=== PATIENT | male | born 1965 | race Caucasian/White ===

== ENCOUNTER → 2017-08-11 | Outpatient (CLI) | payer OTHER | LOC: M SLEEP 19:49 | DX: G47.61 Periodic limb movement disorder (principal); R06.83 Snoring | CPT/HCPCS: 95810 ==

== ENCOUNTER 2018-04-14 16:52 | Emergency (ER) | payer OTHER ==
[2018-04-14] MEDS: ADACEL/BOOSTRIX VACCINE (DIPHTH/PERTUSS/ACELL/TETANUS)0.5ML SYR (90715) IM (17:20)
[2018-04-14] MEDS: LIDOCAINE W/EPINEPHRINE 1% 20ML VIAL SC (17:29)
[2018-04-14] MEDS: ALPRAZolam 0.5 MG TAB PO (17:29)
== END 2018-04-14 18:20 | disposition home or self-care (01) ==
LOC: M ED 16:52
DX: S81.011A Laceration without foreign body, right knee, initial encounter (principal); W27.0XXA Contact with workbench tool, initial encounter; Y92.018 Other place in single-family (private) house as the place of occurrence of the external cause; Z88.0 Allergy status to penicillin; F17.210 Nicotine dependence, cigarettes, uncomplicated
CPT/HCPCS: 90715

== ENCOUNTER → 2018-08-29 | Outpatient (REF) | payer OTHER ==
[2018-08-29 12:54] LABS: INFLUENZA A AMPLIFICATION NEGATIVE (NEGATIVE); INFLUENZA B AMPLIFICATION NEGATIVE (NEGATIVE)
== END ==
LOC: M LAB REF 11:57
PROVIDERS: ATTEND Physician Assistant
DX: J11.1 Influenza due to unidentified influenza virus with other respiratory manifestations (principal)

== ENCOUNTER → 2019-09-07 | Outpatient (CLI) | payer MEDICAID, OTHER, SELFPAY ==
[2019-09-09 12:45] LABS: LUTEINIZING HORMONE 2.9 mIU/mL (1.5-9.3); PROLACTIN 2.2 NG/ML (2.1-17.7)
== END ==
LOC: M LAB 11:32
PROVIDERS: ATTEND Nurse Practitioner Family
DX: E29.1 Testicular hypofunction (principal)

== ENCOUNTER → 2022-08-07 | Outpatient (CLI) | payer OTHER ==
[2022-08-07 10:08] LABS: FOLLICLE STIMULATING HORMONE 11.5 mIU/ML (1.4-18.1); FREE T4 0.89 NG/DL (0.89-1.76); LUTEINIZING HORMONE 7.4 mIU/ML (1.5-9.3)
[2022-08-07 10:09] LABS: PROLACTIN 5.14 NG/ML (2.1-17.7); THYROID STIMULATING HORMONE 3.938 uIU/ML (0.55-4.78)
== END ==
LOC: M LAB 08:31
PROVIDERS: ATTEND Nurse Practitioner Family
DX: E29.1 Testicular hypofunction (principal)

== ENCOUNTER → 2022-10-08 | Outpatient (CLI) | payer OTHER | LOC: M LAB 08:50 | PROVIDERS: ATTEND Family Medicine | DX: G47.10 Hypersomnia, unspecified (principal); E53.8 Deficiency of other specified B group vitamins ==

== ENCOUNTER → 2023-04-21 | Outpatient (CLI) | payer OTHER | LOC: M RAD 17:08 | PROVIDERS: ATTEND Family Medicine | DX: M19.031 Primary osteoarthritis, right wrist (principal) ==

== ENCOUNTER 2023-05-22 20:00 | Outpatient (CLI) | payer OTHER | END 2023-05-23 08:00 | LOC: M SLEEP 20:00 | PROVIDERS: ATTEND Nurse Practitioner Adult Health | DX: G47.61 Periodic limb movement disorder (principal) ==

== ENCOUNTER → 2023-07-15 | Outpatient (REF) | payer OTHER | LOC: M LAB REF 13:29 | PROVIDERS: ATTEND Physician Assistant | DX: B34.9 Viral infection, unspecified (principal) ==

== ENCOUNTER → 2023-11-23 | Outpatient (CLI) | payer OTHER, SELFPAY | LOC: M RAD 17:38 | PROVIDERS: ATTEND Physician Assistant | DX: M25.522 Pain in left elbow (principal) ==

== ENCOUNTER → 2024-07-26 | Outpatient (REF) | payer OTHER, SELFPAY ==
[2024-07-29 12:58] LABS: MUMPS VIRUS IgG ANTIBODY 16.2 AU/mL (>10.99)
== END ==
LOC: M LABWUC 16:10
PROVIDERS: ATTEND Family Medicine
DX: Z02.1 Encounter for pre-employment examination (principal)

== ENCOUNTER 2025-03-24 08:59 | Day surgery (SDC) | payer OTHER ==
[~2025-03-24] VITALS: Ht 177.8 cm; Wt 72.6 kg
[~2025-03-24 08:59] MED LIST: CLAR10CA3 PO; MULTTAB61 PO; PANT40TA29 PO
[2025-03-24] MEDS ORDERED: LIDOCAINE VISCOUS 2% SOLN 15 ML UDC As Ordered ONE (11:20)
[2025-03-24 12:17] VITALS: BP 145/68; O2SAT 98
== END 2025-03-24 12:18 | disposition home or self-care (01) ==
LOC: M OPP 08:59
PROVIDERS: ATTEND Surgery
DX: K44.9 Diaphragmatic hernia without obstruction or gangrene (principal)

== ENCOUNTER → 2025-06-02 | Outpatient (CLI) | payer OTHER ==
[2025-06-02 17:44] LABS: APPEARANCE, URINE CLEAR (CLEAR); BACTERIA, URINE AUTO NEGATIVE (NEGATIVE); BILIRUBIN, URINE AUTO NEGATIVE (NEGATIVE); BLOOD, URINE BLOOD NEGATIVE (NEGATIVE); GLUCOSE, URINE (UA) AUTO NEGATIVE (NEGATIVE); KETONE, URINE AUTO NEGATIVE (NEGATIVE); LEUKOCYTE ESTERASE, URINE AUTO NEGATIVE (NEGATIVE); NITRITE, URINE AUTO NEGATIVE (NEGATIVE); PROTEIN, URINE AUTO NEGATIVE (NEGATIVE); RBC, URINE AUTO 0 /HPF (0-3); SPECIFIC GRAVITY URINE AUTO 1.006 (1.002-1.035); SQUAMOUS EPITHELIAL CELL UR AU 0 /HPF (0-6); UROBILINOGEN, URINE AUTO 0.2 mg/dL (0.0-2.0); WBC, URINE AUTO 0 /HPF (0-3)
[2025-06-02 18:07] LABS: BASO # 0.1 10^3/uL (0.0-0.2); BASO % 0.7 % (0.0-1.0); EOS # 0.2 10^3/uL (0.0-0.5); EOS % 2.6 % (0.0-3.0); LYMPH # 2.1 10^3/uL (1.5-5.0); LYMPH % 29.7 % (24.0-44.0); MONO # 0.7 10^3/uL (0.0-0.8); MONO % 9.2 % (2.0-8.0); NEUTROPHILS # 4.1 10^3/uL (1.5-8.5); NEUTROPHILS % 57.5 % (36.0-66.0); PLATELET COUNT, AUTOMATED 408 10^3/uL (150-450)
[2025-06-02 18:13] LABS: ALT/SGPT 52 U/L (7.0-40); AST/SGOT 46 U/L (<34); CALCIUM LEVEL 10.3 MG/DL (8.3-10.6); CARBON DIOXIDE LEVEL 26 MMOL/L (20-31); CHLORIDE LEVEL 106 MMOL/L (98-107); CREATININE FOR GFR 0.80 MG/DL (0.70-1.30); GLOMERULAR FILTRATION RATE > 90.0 (>49); POTASSIUM SERUM 4.0 MMOL/L (3.5-5.1); SODIUM LEVEL 144 MMOL/L (136-145)
== END ==
LOC: M WUC 13:28
PROVIDERS: ATTEND Family Medicine
DX: K44.9 Diaphragmatic hernia without obstruction or gangrene (principal); R53.83 Other fatigue

== ENCOUNTER 2025-06-09 06:04 | Day surgery (SDC) | payer OTHER ==
[~2025-06-09] VITALS: Ht 177.8 cm; Wt 78.0 kg
[2025-06-09] MEDS ORDERED: SUGAMMADEX SODIUM 500 MG/5 ML VIAL As Ordered ONE (06:51)
[2025-06-09] MEDS ORDERED: ONDANSETRON 4MG/2ML VIAL As Ordered ONE (06:51)
[2025-06-09] MEDS ORDERED: dexmedeTOMIDine (4 MCG/ML) 200 MCG/50 ML BTL As Ordered ONE (06:51)
[2025-06-09] MEDS ORDERED: LIDOCAINE 2% 100 MG/5 ML SDV (FOR ANES.) As Ordered ONE (06:51)
[2025-06-09] MEDS ORDERED: dexAMETHasone 4 MG/ML 1 ML VIAL As Ordered ONE (06:51)
[2025-06-09] MEDS ORDERED: ROCURONIUM BROMIDE 50MG/5ML VIAL As Ordered ONE (06:51)
[2025-06-09] MEDS ORDERED: MIDAZOLAM INJ 2 MG/2 ML VIAL As Ordered ONE (06:55)
[2025-06-09] MEDS: LR 1,000 ML IV SCH (07:02)
[2025-06-09] MEDS ORDERED: HEPARIN SOD 5000 UNITS/ML 1 ML VIAL/SYRINGE As Ordered ONE (07:38)
[2025-06-09] MEDS ORDERED: ceFAZolin SOD 2 GM IV ONCE IV ONE (07:40)
[2025-06-09] MEDS: HEPARIN SOD 5000 UNITS/ML 1 ML VIAL/SYRINGE SQ ONE (07:59)
[2025-06-09] MEDS ORDERED: ACETAMINOPHEN 1000MG/100ML IV BAG As Ordered ONE (08:01)
[2025-06-09] MEDS ORDERED: HYDROMORPHONE HCL 0.5 MG/0.5 ML SYRINGE IV PRN (11:05)
[2025-06-09] MEDS ORDERED: LR 1,000 ML IV SCH (11:05)
[2025-06-09] MEDS ORDERED: HYDR-3713 PO (11:21)
[2025-06-09] MEDS ORDERED: REGL5TAB2 PO (11:21)
[2025-06-09] MEDS ORDERED: SIME1CAP4 PO (11:21)
[2025-06-09] MEDS: SIMETHICONE 80MG CHEW TAB PO STA ×2 (12:22)
[2025-06-09] MEDS: ONDANSETRON 4MG/2ML VIAL IV PRN (12:22)
[2025-06-09 15:40] VITALS: BP 142/78; TEMP 97; O2SAT 95
== END 2025-06-09 15:40 | disposition home or self-care (01) ==
LOC: M SDC 06:04
PROVIDERS: ATTEND Surgery
DX: K44.9 Diaphragmatic hernia without obstruction or gangrene (principal); K21.9 Gastro-esophageal reflux disease without esophagitis; Z79.899 Other long term (current) drug therapy; Z90.89 Acquired absence of other organs; Z88.0 Allergy status to penicillin
CPT/HCPCS: 43280; C1781; J0131; J0665; J0666; J0688; J1100; J2250; J2405; J2765; J3010; S2900